=== PATIENT | female | born 1985 | race Caucasian/White ===

== ENCOUNTER 2023-05-02 14:48 | Emergency (ER) | payer BC, SELFPAY ==
[2023-05-02 15:16] VITALS: BP 131/86; PULSE 95; RESP 16; TEMP 36.6; O2SAT 99
--- NOTE | 2023-05-02 15:29 | ED.URI ---
HPI - URI/Sore Throat General Chief Complaint: Upper Respiratory Infection Stated Complaint: Sore throat; poss strep Time Seen by Provider: 05/02/23 15:29 Source: patient Mode of arrival: ambulatory Limitations: no limitations History of Present Illness HPI Narrative: 37 yo F presents with c/o sore throat, fatigue, headache since last night. Concerned for strep throat. Pt reports large tonsils at baseline but more swollen today. All systems reviewed and negative except as noted above. Related Data Home Medications Medication Instructions Recorded Confirmed bupropion HCl 150 mg 24 hr tablet, 150 mg PO DIRECTED 05/02/23 05/02/23 extended release bupropion HCl 300 mg 24 hr tablet, 300 mg PO DIRECTED 05/02/23 05/02/23 extended release montelukast 10 mg tablet 10 mg PO DAILY 05/02/23 05/02/23 Allergies Allergy/AdvReac Type Severity Reaction Status Date / Time No Known Allergies Allergy Verified 05/02/23 15:52 Review of Systems Review of Systems: CONSTITUTIONAL: Denies fever, chills, or sweats. Reports fatigue. EYES: Denies visual changes, redness, or discharge. ENT: Denies rhinorrhea, congestion. Reports sore throat. Denies otalgia. CARDIOVASCULAR: Denies chest pain, palpitations, or edema. RESPIRATORY: Denies cough or dyspnea. GASTROINTESTINAL: Denies abdominal pain, nausea, vomiting, or diarrhea. GENITOURINARY: Denies dysuria or hematuria. SKIN: Denies rash or itching. MUSCULOSKELETAL: Denies back pain, joint pain, or myalgia. NEUROLOGIC: Reports headache. Denies numbness, or weakness. PSYCHIATRIC: Denies anxiety or depression. All other systems reviewed are negative, except as documented in HPI. PMFSH Comments At time of signature, agree with nursing past medical, surgical, social and family history. There is no relevant family history pertinent to the presenting complaint. Exam Narrative: GENERAL: This is a well-nourished, well-developed patient, in no apparent distress. HEAD: normocephalic, atraumatic. EYES: PERRL. Sclera clear/white. Vision is grossly intact. EARS: External ears normal, auditory canals clear and without drainage, TMs normal without perforation. Hearing grossly intact. NOSE: External nose normal with no obvious nasal discharge, nares without redness, no rhinorrhea. THROAT: Mucous membranes moist, erythematous, tonsils 3+ bilaterally. No exudates. NECK: Neck supple, non-tender without lymphadenopathy, masses or thyromegaly. CARDIOVASCULAR: Regular rate and rhythm without murmurs, gallops, or rubs. RESPIRATORY: Clear to auscultation. Breath sounds equal bilaterally. No wheezes, rales, or rhonchi. SKIN: warm, Dry, intact with no suspicious lesions or rash, good texture and turgor. NEURO: awake, alert, and oriented to person, place and time. There were no obvious focal neurologic abnormalities. EXTREMITIES: No joint tenderness, effusion, or edema noted. Course Course Level of Care: Express Care Visit Vital Signs Vital signs: Vital Signs Temperature 36.6 C 05/02/23 15:16 Pulse Rate 95 05/02/23 15:16 Respiratory Rate 16 05/02/23 15:16 Blood Pressure 131/86 05/02/23 15:16 Pulse Oximetry 99 05/02/23 15:16 Temperature 36.6 C 05/02/23 15:16 Pulse Rate 95 05/02/23 15:16 Respiratory Rate 16 05/02/23 15:16 Blood Pressure 131/86 05/02/23 15:16 Pulse Oximetry 99 05/02/23 15:16 Reviewed MDM - URI/Sore Throat MDM Narrative Medical decision making narrative: Negative rapid strep. Will treat patient with antibiotics due to exam findings. Differential Diagnosis Differential diagnosis: Likely other (Tonsillitis) Lab Data Labs: Strep Screen Presumptive Negative *(Reference Range: Negative)* Discharge Plan Discharge Clinical Impression: Acute tonsillitis Qualifiers: Pharyngitis/tonsillitis etiology: unspecified etiology Qualified Code(s): J03.90 - Acute tonsilliti
== END 2023-05-02 15:38 | disposition home or self-care (01) ==
PROVIDERS: Emergency Provider Nurse Practitioner Family
DX: J03.90 Acute tonsillitis, unspecified (principal)
CPT/HCPCS: 87081; 87880; 99213; G0463

== ENCOUNTER 2024-09-27 11:38 | Outpatient (CLI) | payer OTHER, SELFPAY ==
--- OUTSIDE RECORDS SUMMARY | 2024-09-27 12:23 | XMS_ITS | Clinical Summary ---
Author Organization [facility] Address [address] [place] [address] Care Team Providers Care Board Mill Supervisor Name Role Phone Unavailable Primary Care Provider Unavailabl e Source Comments [facility],non-owned Affiliates and Associated Physician Practices is amultiple site organization consisting of ambulatory clinics and hospital sitesin [place], [place], [place] and [place]. This disclosure is being madepursuant to the Care Everywhere program and may not contain all information available regarding this patient. Last updated 17.[facility] Allergies No known active allergies Medications * Be aware that medications may not be up to date on this document. Alwaysverify current medications with the patient. levonorgestrel (MIRENA) 20 MCG/24HR IUD 1 Device by Intrauterine route once. Active benzonatate (TESSALON) 200 MG capsuleIndicati ons:Acute upper respiratory infection Take 1 capsule by mouth 3 times daily as needed for Cough 30 capsule 0 Active Immunizations Immunization Administration Dates Next Due INFLUENZA VACCINE, QUADR. (F LUZONE; FLULAVAL; FLUARIX; AFLURIA QUADRIVALENT; 6MO+), 0.5 ML (IIV4) 12/25/2018 Family History Medical History Relation Name Comments Hypertension Mother Relation Name Status Comments Mother Social History Tobacco Use Types Packs/Day Years Used Date Smoking Tobacco: Never Smokeless Tobacco: Never Alcohol Use Standard Drinks/Week Comments No 0 (1 standard drink = 0.6 oz pur e alcohol) Comments No Sex and Gender Information Value Date Recorded Sex Assigned at Not on file Legal Sex Female 5:19 AM DAMPER MAKER Gender Identity Not on file Sexual Orientation Not on file Last Filed Vital Signs Vital Sign Reading Time Taken Comments Blood Pressure 124/64 02/18/2019 1:59 PM DAMPER MAKER Pulse 106 02/18/2019 1:59 PM DAMPER MAKER Temperature 36.6 C (97.8 F) 02/18/2019 1:59 PM DAMPER MAKER Respiratory Rate 18 02/18/2019 1:59 PM DAMPER MAKER Oxygen Saturation 95% 02/18/2019 1:59 PM DAMPER MAKER Inhaled Oxygen Concentration - - Weight 147.4 kg (325 lb) 02/18/2019 1:59 PM DAMPER MAKER Height 167.6 cm (5' 6) 02/18/2019 1:59 PM DAMPER MAKER Body Mass Index 52.46 02/18/2019 1:59 PM DAMPER MAKER Plan of Treatment Health Maintenance Due Date Last Done Comments HIV SCREENING 11/06/2002 HEPATITIS C SCREENING 11/02/2005 DTAP/TDAP/TD VACCINES (1 - Tdap) 11/06/2006 HEPATITIS B VACCINE (1 of 3 - 19+ 3-dose series) 11/06/2006 HPV VACCINE (1 - 3-dose SCDM series) 11/06/2014 COVID-19 VACCINE (1 - 2023-2 5 season) 2023 DEPRESSION SCREENING 02/17/2024 INFLUENZA VACCINE (#1) 2024 12/25/2018 ZOSTER VACCINE (1 of 2) 11/06/2037 HIB VACCINE Aged Out No longer eligi ble based on patient's age to complete this topic MENINGOCOCCAL (Group B) VACC INE SHARED DECISION-MAKING Aged Out No longer eligibl e based on patient's age to complete this topic MENINGOCOCCAL GROUPS A/C/Y/W VACCINE Aged Out No longer eligible b ased on patient's age to complete this topic PNEUMOCOCCAL VACCINE Aged Out No long er eligible based on patient's age to complete this topic Insurance PREMA
--- OUTSIDE RECORDS SUMMARY | 2024-09-27 12:23 | XMS_ITS | Encounter Summary ---
Author Organization [facility] Address [address] [place] [address] Care Team Providers Care Construction Ironworker Helper Name Role Phone Katheryn Bernal [facility] Primary Care Provider + Encounter Details Date Type Department Care Team (Late Contact Info) Description 01/02/2023 [email or web address] Message Enc [address] [phone] Katheryn Bernal [address], [address] [place] [address] [place] Social History Tobacco Use Types Packs/Day Years Used Date Smoking Tobacco: Never Smokeless Tobacco: Never Alcohol Use Standard Drinks/Week Comments Never 0 (1 standard drink = 0.6 oz pur e alcohol) PHQ-2 Answer Date Recorded Patient Health Questionnaire-2 Score 0 05/15/2022 Comments No Sex and Gender Information Value Date Recorded Sex Assigned at Female 03/18/2024 8:35 AM STAFF ANTISUBMARINE OFFICER Legal Sex Female 2:17 PM STAFF ANTISUBMARINE OFFICER Gender Identity Female 01/15/2022 8:49 AM STAFF ANTISUBMARINE OFFICER Sexual Orientation Straight 01/15/2022 8: 49 AM STAFF ANTISUBMARINE OFFICER documented as of this encounter Plan of Treatment Upcoming Encounters Date Type Department Care Team (Late Contact Info) Description 02/03/2025 1:00 PM STAFF ANTISUBMARINE OFFICER Office Visit [address] [phone] Katheryn Bernal [address] [place] [address] documented as of this encounter Visit Diagnoses Not on filedocumented in this encounter Care Teams Construction Ironworker Helper Relationship Specialty Start Date End Date Katheryn Bernal, [facility] [address], [address] [place], [place] [id number] PCP - General NURSE PRACTITIONER 01/14/22 documented as of this encounter
--- OUTSIDE RECORDS SUMMARY | 2024-09-27 12:23 | XMS_ITS | Clinical Summary ---
Author Organization [facility] Address [address] [place] [address] Care Team Providers Care Fire Control Officer Name Role Phone Katheryn Bernal [facility] Primary Care Provider + Allergies No known active allergies Medications levonorgestrel (MIRENA) 20 MCG/DAY IUD 1 Device by Intrauterine route. Activ e AZELASTINE 137 MCG/SPRAY nasal spray SPRAY 2 SPRAYS INTRANASALLY TWICE A DAY 12/17/19 23 Active cetirizine (ZYRTEC ALLERGY) 10 MG tablet 12/31/19 23 Active EPINEPHrine 0.3 MG/0.3ML injection DIRECTED INTRAMUSCULARLY ONCE 30 DAYS 12/17/19 23 Active fluticasone propionate (FLONASE ALLERGY RELIEF) 50 MCG/ACT nasal spray 12/31/19 23 Active montelukast (SINGULAIR) 10 MG tablet 12/31/19 23 Active valACYclovir (VALTREX) 1 g tabletIndicatio ns:Cold sore TAKE 2 GRAMS (2 TABLETS) BY MOUTH ONCE AND THEN NEEDED. 90 tablet 1 10/14/19 24 Active albuterol sulfate HFA 108 (90 Base) MCG/ACT inhaler INHALE 2 PUFFS EVERY 6 (SIX) HOURS NEEDED FOR WHEEZING FOR UP TO 14 DAYS 02/18/19 25 Active triamcinolone (KENALOG) 0.1 % cream 1 paulina applied topically PRN for 30 days 06/15/19 24 Active hydrOXYzine (ATARAX) 25 MG tabletIndicatio ns:Insomnia TAKE 1 TABLET BY MOUTH 3 TIMES DAILY NEEDED FOR ANXIETY. 30 tablet 2 06/22/19 25 Active escitalopram (LEXAPRO) 10 MG tabletIndicatio ns:Anxiety Take 1 tablet (10 mg total) by mouth daily. 90 tablet 1 07/23/19 25 Active buPROPion XL (WELLBUTRIN XL) 300 MG 24 hr tabletIndicatio ns:Anxiety Take 1 tablet (300 mg total) by mouth daily. 90 tablet 1 07/23/19 25 Active tirzepatide (ZEPBOUND) 5 MG/0.5ML injectionIndica tions:Class 3 severe obesity due to excess calories with serious comorbidity and body mass index (BMI) of 50.0 to 59.9 in adult ([facility]) INJECT 5 MG INTO THE SKIN ONCE A WEEK. INDICATIONS: WEIGHT LOSS 6 mL 1 08/17/19 25 Active Active Problems No known active problems Encounters Date Type Department Care Team Description 07/22/2024 1:00 PM CDT Office Visit [address] [phone] Katheryn Bernal FNP-MARTHA Anxiety 07/22/2024 Travel 07/12/2024 MyChart Message Enc [address] [phone] Katheryn Bernal FNP-BC Zepbound from Last 3 Months Immunizations Immunization Administration Dates Next Due FLUCELVAX (ccIIV3, TRIVALENT, 0.5mL) 10/17/2023 Hepatitis A (Havrix [address]) 06/11/2012,2011 Influenza (Generic) 12/18/2020,12/08/2017 Influenza Adult (Generic) 11/09/2022,11/30/2021, 12/25/2018 PFIZER COVID-19 (RIVERA CAP), MRNA, LNP-S, PF, 30 MCG/0.3 ML ANA-SUCROSE, IM 05/17/2021,11/11/2020,10/18/2020 PFIZER COVID-19 BIVALENT (12 +) mRNA, LNP-S, PF, 30 MCG/0.3 ML DOSE 11/30/2021 Tdap (Generic) 04/09/2023 Family History Medical History Relation Comments Hypertension Mother Relation Status Comments Mother Social History Tobacco Use Types Packs/Day Years Used Date Smoking Tobacco: Never Smokeless Tobacco: Never Tobacco Cessation:Counseling Given: No Alcohol Use Standard Drinks/Week Comments Never 0 (1 standard drink = 0.6 oz pur e alcohol) PHQ-2 Answer Date Recorded Patient Health Questionnaire-2 Score 0 03/18/2024 Comments No Sex and Gender Information Value Date Recorded Sex Assigned at Female 03/18/2024 8:35 AM HUMAN RESOURCES DEPARTMENT SUPERVISOR Legal Sex Female 2:17 PM HUMAN RESOURCES DEPARTMENT SUPERVISOR Gender Identity Female 01/15/2022 8:49 AM HUMAN RESOURCES DEPARTMENT SUPERVISOR Sexual Orientation Straight 01/15/2022 8: 49 AM HUMAN RESOURCES DEPARTMENT SUPERVISOR Last Filed Vital Signs Vital Sign Reading Time Taken Comments Blood Pressure 130/86 07/22/2024 12:55 PM CDT Pulse 62 07/22/2024 12:55 PM CDT Temperature 36.3 C (97.3 F) 07/22/2024 12:55 PM CDT Respiratory Rate 18 07/22/2024 12:5 5 PM CDT Oxygen Saturation 100% 07/22/2024 12: 55 PM CDT Inhaled Oxygen Concentration - - Weight 124.6 kg (274 lb 12.8 oz) 2024 12:55 PM CDT Height 166.9 cm (5' 5.7) 07/22/2024 12 :55 PM CDT Body Mass Index 44.76 07/22/2024 12:55 PM CDT Plan of Treatment Upcoming Encounters Date Type Department Care Team (Late st Contact Info) Description 02/03/2025 1:00 PM HUMAN RESOURCES DEPARTMENT SUPERVISOR Office Visit [facility] [address] [place] [address] Katheryn Bernal, [facility] [address], [address] [place] [address] Health Maintenance Due Date Last Done Comments Cervical Cancer Screening Pap Smear (Age 30 to 64) Every 3 Years 1987 Hepatitis B Vaccines (1 of 3 - 19+ 3-dose series) 11/06/2006 HPV Vaccines (1 - 3-dose SCDM series) 11/06/2014 Cervical Cancer Screening Pap with HPV Testing (Age 30 to 64) Every 5 Years 11/06/2017 Cervical Cancer Screening with HPV 11/06/2017 Annual Physical 03/23/2024 03/23/2023 DTaP, Tdap and Td Vaccines (2 - Td or Tdap) 04/09/2033 04/09/2023 Hepatitis C Completed 07/16/2023 COVID-19 Vaccine Completed 10/17/2023, , 11/30/2021, Additional history exists PHQ-2 (Physician [place]ah[place]) Completed 03/18/2024 Meningococcal B Vaccine Aged Out No l onger eligible based on patient's age to complete this topic Meningococcal Vaccine Aged Out No alie eloy eligible based on patient's age to complete this topic Pneumococcal Vaccine: Pediatrics (0 to 5 Years) and At-Risk Patients (6 to 49 Years) Aged Out No longer eligible based on patient's age to complete this topic RSV Immunizations Under 20 Months Aged Out No longer eligible based on patient's age to complete this topic Procedures Procedure Name Priority Date/Time Associated Diagnosis Comments HEPATITIS C ANTIBODY Routine 07/16/2023 8:48 AM CDT Need for hepatitis C screening test from Last 3 Months or Most Recently Relevant to Health Maintenance Results * HEPATITIS C ANTIBODY (07/16/2023 8:48 AM CDT) HEPATITIS C AB NON-REACTI VE NON-REACTI VE 07/16/2023 3:40 PM CDT [facility] 07/16/2023 8:48 AM CDT Katheryn Bernal [facility] Final Re sult [facility] [address] [place] [address], [place] [phone] from Last 3 Months or Most Recently Relevant to Health Maintenance Insurance [facility] Member Subscriber Plan / Payer (Ef fective 2022-Present) Name:Darlene Solis Relation to Subscriber:Self Name:Darlene Solis Payer ID:[id number] (NAIC) Type:[employer] Address: [id number] Care Teams Fire Control Officer Relationship Specialty Start Date End Date Katheryn Bernal, QUALITY ASSURANCE AUDITOR- [address], [address] [place] [address] PCP - General NURSE PRACTITIONER 01/14/22
--- OUTSIDE RECORDS SUMMARY | 2024-09-27 12:23 | XMS_ITS | Encounter Summary ---
Author Organization [facility] Address [address] [place] [address] Care Team Providers Care Statement Clerks Supervisor Name Role Phone Katheryn Bernal [facility] Primary Care Provider + Encounter Details Date Type Department Care Team (Late Contact Info) Description 05/29/2023 [employer] Message Enc [address] [phone] Katheryn Bernal [address], [address] [place] [address] [place] Needed? Social History Tobacco Use Types Packs/Day Years Used Date Smoking Tobacco: Never Smokeless Tobacco: Never Alcohol Use Standard Drinks/Week Comments Never 0 (1 standard drink = 0.6 oz pur e alcohol) PHQ-2 Answer Date Recorded Patient Health Questionnaire-2 Score 0 03/23/2023 Comments No Sex and Gender Information Value Date Recorded Sex Assigned at Female 03/18/2024 8:35 AM HEAT PUMP INSTALLER Legal Sex Female 2:17 PM HEAT PUMP INSTALLER Gender Identity Female 01/15/2022 8:49 AM HEAT PUMP INSTALLER Sexual Orientation Straight 01/15/2022 8: 49 AM HEAT PUMP INSTALLER documented as of this encounter Plan of Treatment Upcoming Encounters Date Type Department Care Team (Late Contact Info) Description 02/03/2025 1:00 PM HEAT PUMP INSTALLER Office Visit [address] [phone] Katheryn Bernal [address], [address] [place] [address] documented as of this encounter Visit Diagnoses Not on filedocumented in this encounter Care Teams Statement Clerks Supervisor Relationship Specialty Start Date End Date Katheryn Bernal, [facility] [address] [facility], [address] [place], [place] [phone] PCP - General NURSE PRACTITIONER 01/14/22 documented as of this encounter
--- OUTSIDE RECORDS SUMMARY | 2024-09-27 12:23 | XMS_ITS | Encounter Summary ---
Author Organization [facility] Address [address] [place] [address] Care Team Providers Care Software Qa Manager Name Role Phone Katheryn Bernal [facility] Primary Care Provider + Encounter Details Date Type Department Care Team (Late Contact Info) Description 08/06/2023 [employer] Message Enc [address] [phone] Katheryn Bernal [address], [address] [place] [address] New Insurance Social History Tobacco Use Types Packs/Day Years Used Date Smoking Tobacco: Never Smokeless Tobacco: Never Alcohol Use Standard Drinks/Week Comments Never 0 (1 standard drink = 0.6 oz pur e alcohol) PHQ-2 Answer Date Recorded Patient Health Questionnaire-2 Score 0 03/23/2023 Comments No Sex and Gender Information Value Date Recorded Sex Assigned at Female 03/18/2024 8:35 AM MANAGER OF DEVELOPMENT Legal Sex Female 2:17 PM MANAGER OF DEVELOPMENT Gender Identity Female 01/15/2022 8:49 AM MANAGER OF DEVELOPMENT Sexual Orientation Straight 01/15/2022 8: 49 AM MANAGER OF DEVELOPMENT documented as of this encounter Plan of Treatment Upcoming Encounters Date Type Department Care Team (Late Contact Info) Description 02/03/2025 1:00 PM MANAGER OF DEVELOPMENT Office Visit [address] [phone] Katheryn Bernal [address] [place] [address] documented as of this encounter Visit Diagnoses Not on filedocumented in this encounter Care Teams Software Qa Manager Relationship Specialty Start Date End Date Katheryn Bernal, [facility] [address] [facility], [address] [place], [place] [phone] PCP - General NURSE PRACTITIONER 01/14/22 documented as of this encounter
--- OUTSIDE RECORDS SUMMARY | 2024-09-27 12:23 | XMS_ITS | Encounter Summary ---
Author Organization [facility] Address [address] [place] [address] Care Team Providers Care Mechanic Chief Name Role Phone Katheryn Bernal [facility] Primary Care Provider + Encounter Details Date Type Department Care Team (Late st Contact Info) Description 05/13/2022 [employer] Message [facility] [address] [place] [address] Katheryn Bernal, [facility] [address], [address] [place] [address] Contrave Side Effect Social History Tobacco Use Types Packs/Day Years Used Date Smoking Tobacco: Never Smokeless Tobacco: Never Alcohol Use Standard Drinks/Week Comments Never 0 (1 standard drink = 0.6 oz pur e alcohol) PHQ-2 Answer Date Recorded Patient Health Questionnaire-2 Score 0 05/15/2022 Comments No Sex and Gender Information Value Date Recorded Sex Assigned at Female 03/18/2024 8:35 AM POOL HAND Legal Sex Female 2:17 PM POOL HAND Gender Identity Female 01/15/2022 8:49 AM POOL HAND Sexual Orientation Straight 01/15/2022 8: 49 AM POOL HAND COVID-19 Exposure Response Date Recorded In the last 10 days, have yo u been in contact with someone who was confirmed or suspected to have Coronavirus/COVID-19? No / Unsure 05/15/2022 2:17 PM CDT documented as of this encounter Functional Status * Over the past 2 weeks, how often have you been bothered by any of the following problems? Question Answer Date of Assessment Author Status Little interest or pleasure in doing things Not at all 05/15/2022 2:30 PM CDT Heather Sewell Active Feeling down, depressed, or hopeless Not at all 05/15/2022 2:30 PM CDT Heather Sewell Active Patient Health Questionnaire-2 Score 0 05/15/2022 2:30 PM CDT Heather Sewell A ctive documented as of this encounter Plan of Treatment Upcoming Encounters Date Type Department Care Team (Late st Contact Info) Description 02/03/2025 1:00 PM POOL HAND Office Visit [facility] [address] [place] [phone] Katheryn Bernal [facility] [address] [facility] [facility], [address] [place], [place] [phone] documented as of this encounter Visit Diagnoses Not on filedocumented in this encounter Care Teams Mechanic Chief Relationship Specialty Start Date End Date Katheryn Bernal [facility] [address] [facility] [facility], [address] [place] [address] PCP - General NURSE PRACTITIONER 01/14/22 documented as of this encounter
[2024-09-27 13:10] LABS: HIV 1/2 Ab P24 Ag Result Negative (Negative)
[2024-09-27 23:48] LABS: Syphilis IgG/IgM Antibody Non-Reactive (Nonreactive)
== END 2024-09-27 11:39 | disposition home or self-care (01) ==
LOC: ANHLAB 11:39
PROVIDERS: PCP Nurse Practitioner; Visit Provider Obstetrics & Gynecology
DX: Z11.3 Encounter for screening for infections with a predominantly sexual mode of transmission (principal)
CPT/HCPCS: 36415; 86593; 86703; G0432